=== PATIENT | female | born 1940 | race Caucasian/White ===

== ENCOUNTER 2018-09-09 12:29 | Inpatient (IN) | payer MEDICARE, OTHER ==
[2018-09-09 12:59] LABS: ADD MAN DIFF? NO
[2018-09-09 13:07] LABS: WHITE BLOOD COUNT 7.7 10^3/ul (4.8-10.8)
[2018-09-09 13:07] LABS: BASOPHIL # 0.1 10^3/ul (0.0-0.1); BASOPHILS % 1.3 % (0.0-2.0); EOSINOPHILS # 0.4 10^3/ul (0.0-0.5); EOSINOPHILS % 4.8 % (0.0-7.0); HEMATOCRIT 33.3 % (37.0-47.0); HEMOGLOBIN 10.5 g/dl (12.0-16.0); LYMPHOCYTES # 1.9 10^3/ul (0.8-2.9); LYMPHOCYTES % 25.2 % (15.0-51.0); MEAN CORPUSCULAR HEMOGLOBIN 28.4 pg (29.0-33.0); MEAN CORPUSCULAR HGB CONC 31.5 g/dl (32.0-37.0); MEAN PLATELET VOLUME 10.1 fl (7.4-10.4); MONOCYTE # 0.4 10^3/ul (0.3-0.9); MONOCYTES % 5.6 % (0.0-11.0); NEUTROPHIL # 4.8 10^3/ul (1.6-7.5); NEUTROPHILS % 62.4 % (39.0-77.0); PLATELET COUNT 259 10^3/UL (140-415); RED CELL DISTRIBUTION WIDTH 14.3 % (11.5-14.5)
[2018-09-09] MEDS: SOD CHLORIDE 0.9% 500 ML IV ×2 (13:16→17:19)
[2018-09-09 13:54] LABS: ALANINE AMINOTRANSFERASE 24 IU/L (13-69); ALBUMIN 4.1 g/dl (3.3-4.9); ALBUMIN/GLOBULIN RATIO 1.51; ALKALINE PHOSPHATASE 77 IU/L (42-121); ANION GAP 14 (5-13); ASPARTATE AMINO TRANSFERASE 22 IU/L (15-46); BILIRUBIN,INDIRECT 0.6 mg/dl (0-1.1); BILIRUBIN,TOTAL 0.6 mg/dl (0.2-1.3); BLOOD UREA NITROGEN 62 mg/dl (7-20); CALCIUM 10.3 mg/dl (8.4-10.2); CARBON DIOXIDE 16 mmol/L (21-31); CHLORIDE 113 mmol/L (97-110); CREATININE 4.81 mg/dl (0.44-1.00); GLUCOSE 124 mg/dl (70-220); POTASSIUM 4.8 mmol/L (3.5-5.1); SODIUM 143 mmol/L (135-144); TOTAL PROTEIN 6.8 g/dl (6.1-8.1)
[2018-09-09 14:44] LABS: ADD UMIC YES; UR ASCORBIC ACID NEGATIVE (NEGATIVE); UR BILIRUBIN (Dip) NEGATIVE (NEGATIVE); UR BLOOD (Dip) NEGATIVE (NEGATIVE); UR CLARITY CLEAR (CLEAR); UR COLOR YELLOW (YELLOW); UR GLUCOSE (Dip) NEGATIVE (NEGATIVE); UR KETONES (Dip) NEGATIVE (NEGATIVE); UR LEUKOCYTE ESTERASE (Dip) TRACE Leu/ul (NEGATIVE); UR NITRITE (Dip) NEGATIVE (NEGATIVE); UR RBC 1 /HPF (0-5); UR SPECIFIC GRAVITY (Dip) 1.011 (1.003-1.030); UR SQUAMOUS EPITHELIAL CELL FEW /HPF (FEW); UR TOTAL PROTEIN (Dip) NEGATIVE (NEGATIVE); UR UROBILINOGEN (Dip) NEGATIVE (NEGATIVE); UR WBC 5 /HPF (0-5)
[2018-09-09] MEDS ORDERED: ONDANSETRON 4 MG INJ IV (15:30)
[2018-09-09] MEDS ORDERED: ACETAMINOPHEN 325 MG TAB PO (15:30)
[2018-09-09] MEDS ORDERED: OXYCODONE/ACETAMINOPHEN (5/325) TAB PO (17:00)
[2018-09-09] MEDS ORDERED: NACL 0.9% 3 ML SYG IV (17:00)
[2018-09-09] MEDS: SOD CHLORIDE 0.45% 1,000 ML IV (19:11)
[2018-09-09] MEDS: PANTOPRAZOLE (EC) 40 MG TAB PO (20:17)
[2018-09-09] MEDS: METOPROLOL (XL) 25 MG TAB PO (20:17)
[2018-09-09] MEDS: HEPARIN 5,000 UNIT/1 ML VIAL SC (20:24)
[2018-09-09] MEDS: traZODone 50 MG TAB PO (21:33)
[2018-09-10 03:39] LABS: ADD UMIC NO; UR ASCORBIC ACID NEGATIVE (NEGATIVE); UR BILIRUBIN (Dip) NEGATIVE (NEGATIVE); UR BLOOD (Dip) NEGATIVE (NEGATIVE); UR CLARITY CLEAR (CLEAR); UR COLOR STRAW (YELLOW); UR GLUCOSE (Dip) NEGATIVE (NEGATIVE); UR KETONES (Dip) NEGATIVE (NEGATIVE); UR LEUKOCYTE ESTERASE (Dip) NEGATIVE Leu/ul (NEGATIVE); UR NITRITE (Dip) NEGATIVE (NEGATIVE); UR SPECIFIC GRAVITY (Dip) 1.011 (1.003-1.030); UR TOTAL PROTEIN (Dip) NEGATIVE (NEGATIVE); UR UROBILINOGEN (Dip) NEGATIVE (NEGATIVE)
[2018-09-10 03:56] LABS: SODIUM,URINE RANDOM 56 mmol/L (30-90)
[2018-09-10 03:56] LABS: CREATININE,URINE RANDOM 76.62 mg/dl (20-320)
[2018-09-10] MEDS: LORAZEPAM 1 MG TAB PO (03:56)
[2018-09-10] MEDS: SOD CHLORIDE 0.45% 1,000 ML IV ×4 (05:14→22:34)
[2018-09-10 05:57] LABS: ADD MAN DIFF? NO
[2018-09-10 06:01] LABS: WHITE BLOOD COUNT 6.8 10^3/ul (4.8-10.8)
[2018-09-10 06:01] LABS: BASOPHIL # 0.1 10^3/ul (0.0-0.1); BASOPHILS % 1.3 % (0.0-2.0); EOSINOPHILS # 0.4 10^3/ul (0.0-0.5); EOSINOPHILS % 6.1 % (0.0-7.0); HEMOGLOBIN 9.2 g/dl (12.0-16.0); LYMPHOCYTES # 2.3 10^3/ul (0.8-2.9); LYMPHOCYTES % 33.3 % (15.0-51.0); MEAN CORPUSCULAR HEMOGLOBIN 28.7 pg (29.0-33.0); MEAN CORPUSCULAR HGB CONC 31.7 g/dl (32.0-37.0); MEAN CORPUSCULAR VOLUME 90.3 fl (82.0-101.0); MEAN PLATELET VOLUME 9.9 fl (7.4-10.4); MONOCYTE # 0.4 10^3/ul (0.3-0.9); MONOCYTES % 6.5 % (0.0-11.0); NEUTROPHIL # 3.5 10^3/ul (1.6-7.5); NEUTROPHILS % 52.2 % (39.0-77.0); PLATELET COUNT 240 10^3/UL (140-415); RED BLOOD COUNT 3.21 10^6/ul (4.20-5.40); RED CELL DISTRIBUTION WIDTH 13.9 % (11.5-14.5)
[2018-09-10 06:52] LABS: PHOSPHORUS 3.3 mg/dl (2.5-4.9)
[2018-09-10 06:52] LABS: MAGNESIUM 1.4 mg/dl (1.7-2.5)
[2018-09-10 07:07] LABS: ANION GAP 10 (5-13); BLOOD UREA NITROGEN 50 mg/dl (7-20); CALCIUM 9.3 mg/dl (8.4-10.2); CARBON DIOXIDE 18 mmol/L (21-31); CHLORIDE 114 mmol/L (97-110); CREATININE 3.76 mg/dl (0.44-1.00); GLUCOSE 100 mg/dl (70-220); POTASSIUM 4.2 mmol/L (3.5-5.1); SODIUM 142 mmol/L (135-144)
[2018-09-10 07:31] LABS: HEMOGLOBIN A1C 6.5 % (0-5.9)
[2018-09-10] MEDS: CLOPIDOGREL 75 MG TAB PO (08:12)
[2018-09-10] MEDS: PANTOPRAZOLE (EC) 40 MG TAB PO ×2 (08:12→21:33)
[2018-09-10] MEDS: ESCITALOPRAM 10 MG TAB PO (08:12)
[2018-09-10] MEDS: METOPROLOL (XL) 25 MG TAB PO ×2 (08:13→21:34)
[2018-09-10] MEDS: HEPARIN 5,000 UNIT/1 ML VIAL SC ×3 (09:00→21:35)
[2018-09-10] MEDS: MAGNESIUM SULFATE 2 GM/50 ML 50 ML IVPB (10:36)
[2018-09-10] MEDS: traZODone 50 MG TAB PO (21:00)
[2018-09-11 06:30] LABS: ADD MAN DIFF? NO
[2018-09-11 06:43] LABS: WHITE BLOOD COUNT 7.3 10^3/ul (4.8-10.8)
[2018-09-11 06:43] LABS: BASOPHIL # 0.1 10^3/ul (0.0-0.1); EOSINOPHILS # 0.4 10^3/ul (0.0-0.5); EOSINOPHILS % 5.6 % (0.0-7.0); HEMATOCRIT 30.4 % (37.0-47.0); HEMOGLOBIN 9.9 g/dl (12.0-16.0); LYMPHOCYTES # 2.3 10^3/ul (0.8-2.9); LYMPHOCYTES % 31.3 % (15.0-51.0); MEAN CORPUSCULAR HEMOGLOBIN 28.9 pg (29.0-33.0); MEAN CORPUSCULAR HGB CONC 32.6 g/dl (32.0-37.0); MEAN CORPUSCULAR VOLUME 88.9 fl (82.0-101.0); MEAN PLATELET VOLUME 9.9 fl (7.4-10.4); MONOCYTE # 0.5 10^3/ul (0.3-0.9); MONOCYTES % 6.5 % (0.0-11.0); NEUTROPHILS % 54.5 % (39.0-77.0); PLATELET COUNT 255 10^3/UL (140-415); RED BLOOD COUNT 3.42 10^6/ul (4.20-5.40); RED CELL DISTRIBUTION WIDTH 13.8 % (11.5-14.5)
[2018-09-11 07:52] LABS: ANION GAP 12 (5-13); BLOOD UREA NITROGEN 34 mg/dl (7-20); CALCIUM 9.5 mg/dl (8.4-10.2); CARBON DIOXIDE 18 mmol/L (21-31); CHLORIDE 112 mmol/L (97-110); CREATININE 2.45 mg/dl (0.44-1.00); GLUCOSE 119 mg/dl (70-220); MAGNESIUM 1.7 mg/dl (1.7-2.5); PHOSPHORUS 2.6 mg/dl (2.5-4.9); POTASSIUM 4.1 mmol/L (3.5-5.1); SODIUM 142 mmol/L (135-144)
[2018-09-11] MEDS: CLOPIDOGREL 75 MG TAB PO (08:45)
[2018-09-11] MEDS: PANTOPRAZOLE (EC) 40 MG TAB PO ×2 (08:45→20:27)
[2018-09-11] MEDS: ESCITALOPRAM 10 MG TAB PO (08:45)
[2018-09-11] MEDS: METOPROLOL (XL) 25 MG TAB PO ×2 (08:46→20:27)
[2018-09-11] MEDS: HEPARIN 5,000 UNIT/1 ML VIAL SC ×2 (08:52→09:00)
[2018-09-11] MEDS: AMLODIPINE 10 MG TAB PO (09:09)
[2018-09-11] MEDS: MAGNESIUM OXIDE 400 MG TAB PO ×2 (12:32→20:28)
[2018-09-11] MEDS: SENNA TAB PO (12:41)
[2018-09-11 15:37] LABS: CREATININE, RANDOM URINE 77 mg/dL (20-275); MICROALBUMIN 4.5 mg/dL; MICROALBUMIN/CREATININE RATIO 58 (<30)
[2018-09-11] MEDS: traMADol 50 MG TAB PO (17:18)
[2018-09-11] MEDS: traZODone 50 MG TAB PO (20:27)
[2018-09-12 05:55] LABS: ADD MAN DIFF? NO
[2018-09-12 05:58] LABS: BASOPHIL # 0.1 10^3/ul (0.0-0.1); BASOPHILS % 0.9 % (0.0-2.0); EOSINOPHILS # 0.4 10^3/ul (0.0-0.5); EOSINOPHILS % 4.2 % (0.0-7.0); HEMATOCRIT 32.5 % (37.0-47.0); HEMOGLOBIN 10.5 g/dl (12.0-16.0); LYMPHOCYTES % 35.5 % (15.0-51.0); MEAN CORPUSCULAR HEMOGLOBIN 28.4 pg (29.0-33.0); MEAN CORPUSCULAR HGB CONC 32.3 g/dl (32.0-37.0); MEAN CORPUSCULAR VOLUME 87.8 fl (82.0-101.0); MEAN PLATELET VOLUME 9.8 fl (7.4-10.4); MONOCYTE # 0.6 10^3/ul (0.3-0.9); MONOCYTES % 7.5 % (0.0-11.0); NEUTROPHIL # 4.3 10^3/ul (1.6-7.5); NEUTROPHILS % 51.1 % (39.0-77.0); PLATELET COUNT 283 10^3/UL (140-415); RED CELL DISTRIBUTION WIDTH 13.7 % (11.5-14.5)
[2018-09-12 05:58] LABS: WHITE BLOOD COUNT 8.5 10^3/ul (4.8-10.8)
[2018-09-12 06:51] LABS: ANION GAP 9 (5-13); BLOOD UREA NITROGEN 27 mg/dl (7-20); CALCIUM 9.8 mg/dl (8.4-10.2); CARBON DIOXIDE 22 mmol/L (21-31); CHLORIDE 110 mmol/L (97-110); CREATININE 1.98 mg/dl (0.44-1.00); GLUCOSE 125 mg/dl (70-220); MAGNESIUM 1.7 mg/dl (1.7-2.5); PHOSPHORUS 2.9 mg/dl (2.5-4.9); POTASSIUM 4.3 mmol/L (3.5-5.1); SODIUM 141 mmol/L (135-144)
[2018-09-12] MEDS: MAGNESIUM OXIDE 400 MG TAB PO (08:34)
[2018-09-12] MEDS: CLOPIDOGREL 75 MG TAB PO (08:34)
[2018-09-12] MEDS: AMLODIPINE 10 MG TAB PO (08:34)
[2018-09-12] MEDS: ESCITALOPRAM 10 MG TAB PO (08:35)
[2018-09-12] MEDS: PANTOPRAZOLE (EC) 40 MG TAB PO (08:35)
[2018-09-12] MEDS: METOPROLOL (XL) 25 MG TAB PO (08:35)
[2018-09-12] MEDS: SENNA TAB PO (08:35)
[2018-09-12] MEDS: LOSARTAN 25 MG TAB PO (09:28)
== END 2018-09-12 14:05 | disposition home health service (06) | DRG 683 ==
LOC: E/R 12:29 → 2NE 15:01
DX: N17.9 Acute kidney failure, unspecified (principal); E87.2 Acidosis; E11.22 Type 2 diabetes mellitus with diabetic chronic kidney disease; D64.9 Anemia, unspecified; E86.0 Dehydration; E66.01 Morbid (severe) obesity due to excess calories; I12.9 Hypertensive chronic kidney disease with stage 1 through stage 4 chronic kidney disease, or unspecified chronic kidney disease; N18.4 Chronic kidney disease, stage 4 (severe); Z95.3 Presence of xenogenic heart valve; Z79.4 Long term (current) use of insulin; Z68.32 Body mass index [BMI] 32.0-32.9, adult
CPT/HCPCS: 36415; 71045; 76775; 80048; 80053; 81001; 81003; 82043; 83036; 83735; 84100; 84155; 84300; 85025; 96360; 96361; 97110; 97116; 97162; 99285-25